=== PATIENT | male | born 1960 | race Two or more races ===

== ENCOUNTER 2020-02-02 14:29 | Emergency (ER) | payer BC, OTHER ==
[2020-02-02] MEDS ORDERED: KETOROLAC TROMETHAMINE 60 MG/2 ML VIAL IM ONE (14:59)
[2020-02-02] MEDS ORDERED: LIDOCAINE 5% TOPICAL PATCH TP ONE (14:59)
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
[2020-02-02 15:09] VITALS: BP 137/95; PULSE 89; TEMP 97.6; BMI 23.3
[2020-02-02] MEDS ORDERED: LIDOCAINE 5% TOPICAL PATCH ONE (15:39)
[2020-02-02] MEDS ORDERED: KETOROLAC TROMETHAMINE 30 MG/1 ML VIAL ONE (15:39)
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
== END 2020-02-02 15:59 | disposition home or self-care (01) ==
LOC: JERFT 14:29
DX: M54.2 Cervicalgia (principal)
CPT/HCPCS: 72050-TC-FY; 99283-25